=== PATIENT | female | born 1955 | race Caucasian/White ===

== ENCOUNTER 2018-11-06 17:51 | Inpatient (IN) | payer MEDICARE, OTHER ==
[~2018-11-06] VITALS: Ht 149.9 cm; Wt 53.3 kg
[2018-11-06 18:25] VITALS: BP 127/53
[2018-11-06] MEDS ORDERED: Z GUARD REMEDY 2 OZ OINT TP PRN (18:30)
[2018-11-06] MEDS ORDERED: MORPHINE SULFATE INJ 4 MG/ML DISP.SYRIN IV PRN (18:30)
[2018-11-06] MEDS: HEPARIN INFUSION/D5W 500 ML IV PRN (21:16)
[2018-11-06] MEDS ORDERED: HEPARIN SODIUM, PORCINE 5000 UNITS/1 ML VIAL IV ONE (21:30)
[2018-11-06 23:22] VITALS: BP 145/78
[2018-11-07] VITALS (9 sets, daily range): BP systolic 108–179; BP diastolic 60–94
[2018-11-07] MEDS: HYDROMORPHONE 1 MG/1 ML DISP.SYRIN IV PRN ×2 (00:08→21:21)
[2018-11-07] MEDS: ZOLPIDEM TARTRATE 5 MG TABLET PO PRN (03:34)
[2018-11-07 03:52] LABS: BASOPHILS % (AUTO) 0.2 % (0.0-2.0); EOSINOPHILS % (AUTO) 1.6 % (0.0-6.0); HEMATOCRIT 35 % (33-45); HEMOGLOBIN 11.3 g/dL (11.5-14.8); LYMPHOCYTES # (AUTO) 2.9 /CMM (0.8-4.8); LYMPHOCYTES % (AUTO) 24.4 % (20.0-44.0); MEAN CORPUSCULAR HGB CONC 32 g/dl (31.0-36.0); MEAN CORPUSCULAR VOLUME 82 fL (82-100); MONOCYTES # (AUTO) 0.9 /CMM (0.1-1.30); MONOCYTES % (AUTO) 7.7 % (2.0-12.0); NEUTROPHILS # (AUTO) 7.9 /CMM (1.8-8.9); NEUTROPHILS % (AUTO) 66.1 % (43.0-81.0); PLATELET COUNT (AUTO) 184 /CMM (150-450); RED BLOOD CELL COUNT(AUTO) 4.24 MIL/uL (4.0-5.2)
[2018-11-07 04:17] LABS: ALBUMIN 2.5 g/dL (3.4-5.0); BILIRUBIN,TOTAL 0.2 mg/dL (0.2-1.0); CALCIUM, SERUM 9.3 mg/dL (8.5-10.1); CREATININE 1.5 mg/dL (0.6-1.3); MAGNESIUM 1.3 mg/dL (1.8-2.4); POTASSIUM 3.7 mmol/L (3.5-5.1); TOTAL PROTEIN, SERUM 7.2 g/dL (6.4-8.2)
[2018-11-07 04:27] LABS: THYROID STIMULATING HORMONE 0.009 uIU/mL (0.358-3.74)
[2018-11-07] MEDS ORDERED: hydrALAZINE HCL 25 MG TABLET PO PRN (08:00)
[2018-11-07] MEDS: PANTOPRAZOLE 40 MG TABLET.DR PO SCH (08:35)
[2018-11-07] MEDS ORDERED: CARB-95 PO (08:40)
[2018-11-07] MEDS ORDERED: INSU100V7 SQ (08:40)
[2018-11-07] MEDS ORDERED: BACL20TA PO (08:40)
[2018-11-07] MEDS ORDERED: ATOR40TA PO (08:40)
[2018-11-07] MEDS ORDERED: CARB-93 PO (08:40)
[2018-11-07] MEDS ORDERED: BLOO-668 IN (08:40)
[2018-11-07] MEDS ORDERED: INSU100I14 SQ (08:40)
[2018-11-07] MEDS: Magnesium 1GM/D5W 100ML PREMIX 100 ML IV SCH ×4 (11:48→14:58)
[2018-11-07] MEDS ORDERED: DEXTROSE 50%-WATER 50 ML DISP.SYRIN IV PRN (13:00)
[2018-11-07] MEDS: BLOOD SUGAR DIAGNOSTIC 1 EACH STRIP VI SCH ×3 (13:09→21:21)
[2018-11-07] MEDS: INSULIN REGULAR, HUMAN 100 UNIT/ML 3 ML VIAL SQ PRN ×2 (13:11→17:28)
[2018-11-07] MEDS: ACETAMINOPHEN 325 MG TABLET PO PRN (14:01)
[2018-11-07] MEDS: BACLOFEN (10 MG) 10 MG TABLET PO PRN (15:25)
[2018-11-07] MEDS ORDERED: BACLOFEN (10 MG) 10 MG TABLET PO PRN (15:30)
[2018-11-07] MEDS ORDERED: RAMIPRIL 5 MG CAPSULE PO SCH (17:00)
[2018-11-07] MEDS: CARVEDILOL 12.5 MG TABLET PO SCH (21:19)
[2018-11-07] MEDS: ATORVASTATIN 40 MG TABLET PO SCH (21:19)
[2018-11-07] MEDS: *INSULIN REGULAR(HUMULIN R)HUM 100 UNIT/ML VIAL SQ PRN (21:42)
[2018-11-08] VITALS (8 sets, daily range): BP systolic 123–172; BP diastolic 61–83
[2018-11-08] MEDS: BACLOFEN (10 MG) 10 MG TABLET PO PRN ×2 (05:15→14:21)
[2018-11-08] MEDS: HEPARIN INFUSION/D5W 500 ML IV PRN (05:52)
[2018-11-08 07:19] LABS: BASOPHILS % (AUTO) 0.3 % (0.0-2.0); EOSINOPHILS % (AUTO) 3.5 % (0.0-6.0); HEMATOCRIT 29 % (33-45); HEMOGLOBIN 9.6 g/dL (11.5-14.8); LYMPHOCYTES # (AUTO) 1.8 /CMM (0.8-4.8); LYMPHOCYTES % (AUTO) 25.7 % (20.0-44.0); MEAN CORPUSCULAR HGB CONC 33 g/dl (31.0-36.0); MEAN CORPUSCULAR VOLUME 82 fL (82-100); MONOCYTES # (AUTO) 0.6 /CMM (0.1-1.30); MONOCYTES % (AUTO) 8.5 % (2.0-12.0); NEUTROPHILS # (AUTO) 4.4 /CMM (1.8-8.9); PLATELET COUNT (AUTO) 161 /CMM (150-450); RED BLOOD CELL COUNT(AUTO) 3.59 MIL/uL (4.0-5.2); WHITE BLOOD COUNT (AUTO) 7.1 K/uL (4.3-11.0)
[2018-11-08 07:41] LABS: CALCIUM, SERUM 8.7 mg/dL (8.5-10.1); CREATININE 1.6 mg/dL (0.6-1.3); POTASSIUM 3.7 mmol/L (3.5-5.1)
[2018-11-08] MEDS: BLOOD SUGAR DIAGNOSTIC 1 EACH STRIP VI SCH ×4 (08:07→21:17)
[2018-11-08] MEDS: PANTOPRAZOLE 40 MG TABLET.DR PO SCH (08:07)
[2018-11-08] MEDS: INSULIN REGULAR, HUMAN 100 UNIT/ML 3 ML VIAL SQ PRN ×3 (08:09→17:21)
[2018-11-08] MEDS: CARVEDILOL 12.5 MG TABLET PO SCH ×2 (08:39→20:24)
[2018-11-08] MEDS ORDERED: ASPIRIN EC 325 MG TABLET.DR PO SCH (09:00)
[2018-11-08] MEDS: ACETAMINOPHEN 325 MG TABLET PO PRN ×2 (09:48→21:16)
[2018-11-08] MEDS: HYDROMORPHONE 1 MG/1 ML DISP.SYRIN IV PRN ×2 (16:21→20:30)
[2018-11-08] MEDS: RAMIPRIL 5 MG CAPSULE PO SCH (18:26)
[2018-11-08] MEDS: ATORVASTATIN 40 MG TABLET PO SCH (21:16)
[2018-11-08] MEDS: ZOLPIDEM TARTRATE 5 MG TABLET PO PRN (21:17)
[2018-11-08] MEDS: *INSULIN REGULAR(HUMULIN R)HUM 100 UNIT/ML VIAL SQ PRN (21:27)
[2018-11-09] VITALS (8 sets, daily range): BP systolic 124–175; BP diastolic 53–83
[2018-11-09] MEDS: hydrALAZINE HCL 25 MG TABLET PO PRN ×2 (05:35→11:09)
[2018-11-09 06:29] LABS: BASOPHILS % (AUTO) 0.4 % (0.0-2.0); EOSINOPHILS % (AUTO) 4.8 % (0.0-6.0); HEMATOCRIT 31 % (33-45); LYMPHOCYTES # (AUTO) 1.7 /CMM (0.8-4.8); MEAN CORPUSCULAR HGB CONC 33 g/dl (31.0-36.0); MEAN CORPUSCULAR VOLUME 82 fL (82-100); MONOCYTES # (AUTO) 0.6 /CMM (0.1-1.30); MONOCYTES % (AUTO) 9.4 % (2.0-12.0); NEUTROPHILS # (AUTO) 3.9 /CMM (1.8-8.9); NEUTROPHILS % (AUTO) 59.4 % (43.0-81.0); PLATELET COUNT (AUTO) 174 /CMM (150-450); RED BLOOD CELL COUNT(AUTO) 3.71 MIL/uL (4.0-5.2); WHITE BLOOD COUNT (AUTO) 6.6 K/uL (4.3-11.0)
[2018-11-09 06:35] LABS: CALCIUM, SERUM 8.9 mg/dL (8.5-10.1); CREATININE 1.8 mg/dL (0.6-1.3); POTASSIUM 3.9 mmol/L (3.5-5.1)
[2018-11-09] MEDS: PANTOPRAZOLE 40 MG TABLET.DR PO SCH (07:44)
[2018-11-09] MEDS: BLOOD SUGAR DIAGNOSTIC 1 EACH STRIP VI SCH ×4 (07:44→21:36)
[2018-11-09] MEDS: INSULIN REGULAR, HUMAN 100 UNIT/ML 3 ML VIAL SQ PRN ×2 (07:50→17:55)
[2018-11-09] MEDS: ASPIRIN EC 81 MG TABLET.DR PO SCH (08:03)
[2018-11-09] MEDS: CARVEDILOL 12.5 MG TABLET PO SCH ×2 (08:03→21:23)
[2018-11-09] MEDS: RAMIPRIL 5 MG CAPSULE PO SCH ×2 (08:04→17:07)
[2018-11-09] MEDS: AMLODIPINE BESYLATE 5 MG TABLET PO SCH (09:08)
[2018-11-09] MEDS: BACLOFEN (10 MG) 10 MG TABLET PO PRN ×2 (09:09→22:05)
[2018-11-09] MEDS: ACETAMINOPHEN 325 MG TABLET PO PRN (09:09)
[2018-11-09] MEDS ORDERED: REGADENOSON 0.4 MG/5 ML DISP.SYRIN IVP ONE (13:00)
[2018-11-09] MEDS ORDERED: IV NS 0.9% 500 ML IV ONE (13:30)
[2018-11-09] MEDS: ONDANSETRON HCL/PF 4 MG/2 ML VIAL IVP PRN ×2 (13:40→22:01)
[2018-11-09] MEDS: CARBIDOPA/LEVODOPA 25/100 MG 1 UDTAB PO SCH (17:06)
[2018-11-09 17:33] LABS: APPEARANCE,URINE SL CLOUDY (CLEAR); BILIRUBIN,URINE NEGATIVE (NEGATIVE); BLOOD, URINE NEGATIVE Ery/uL (NEGATIVE); COLOR,URINE YELLOW (YELLOW); KETONES,URINE NEGATIVE (NEGATIVE); LEUKOCYTE ESTERASE ,URINE 1+ (NEGATIVE); NITRITE, URINE NEGATIVE (NEGATIVE); PROTEIN,URINE 2+ mg/dl (NEGATIVE); UGLUCOSE NEGATIVE (NEGATIVE); UROBILINOGEN,URINE 0.2 EU/dL (0.2)
[2018-11-09 17:40] LABS: CREATININE, URINE 50.4 MG/DL (30.0-125.0); URINE TOTAL PROTEIN 100.6 mg/dL (0-11.9)
[2018-11-09 17:46] LABS: RBC,URINE 0-2 /HPF (0-2)
[2018-11-09 17:47] LABS: BACTERIA,URINE Few /HPF (None Seen); SQUAMOUS EPITHELIAL CELL,UR Few /HPF (None Seen); WBC,URINE 25-30 /HPF (0-3)
[2018-11-09 19:04] LABS: EOSINOPHIL,URINE None Seen
[2018-11-09] MEDS: ATORVASTATIN 40 MG TABLET PO SCH (21:23)
[2018-11-09] MEDS: CARBIDOPA/LEVA CR 25/100MG 1 TAB.SA PO SCH (21:25)
[2018-11-09] MEDS: HYDROMORPHONE 1 MG/1 ML DISP.SYRIN IV PRN (21:33)
[2018-11-09] MEDS: *INSULIN REGULAR(HUMULIN R)HUM 100 UNIT/ML VIAL SQ PRN (21:47)
[2018-11-10] VITALS: BP 141/61
[2018-11-10 04:00] VITALS: BP 157/66
[2018-11-10 07:02] LABS: BASOPHILS % (AUTO) 0.4 % (0.0-2.0); EOSINOPHILS % (AUTO) 4.7 % (0.0-6.0); HEMATOCRIT 28 % (33-45); HEMOGLOBIN 9.4 g/dL (11.5-14.8); LYMPHOCYTES # (AUTO) 1.6 /CMM (0.8-4.8); LYMPHOCYTES % (AUTO) 25.7 % (20.0-44.0); MEAN CORPUSCULAR HGB CONC 34 g/dl (31.0-36.0); MEAN CORPUSCULAR VOLUME 81 fL (82-100); MONOCYTES # (AUTO) 0.4 /CMM (0.1-1.30); MONOCYTES % (AUTO) 6.3 % (2.0-12.0); NEUTROPHILS # (AUTO) 3.8 /CMM (1.8-8.9); NEUTROPHILS % (AUTO) 62.9 % (43.0-81.0); PLATELET COUNT (AUTO) 190 /CMM (150-450); RED BLOOD CELL COUNT(AUTO) 3.43 MIL/uL (4.0-5.2)
[2018-11-10 07:35] LABS: ALBUMIN 2.2 g/dL (3.4-5.0); BILIRUBIN,TOTAL 0.2 mg/dL (0.2-1.0); CALCIUM, SERUM 9.3 mg/dL (8.5-10.1); CREATININE 1.5 mg/dL (0.6-1.3); MAGNESIUM 1.7 mg/dL (1.8-2.4); PHOSPHORUS 3.8 mg/dL (2.5-4.9); POTASSIUM 4.1 mmol/L (3.5-5.1); TOTAL PROTEIN, SERUM 6.3 g/dL (6.4-8.2)
[2018-11-10] MEDS: BLOOD SUGAR DIAGNOSTIC 1 EACH STRIP VI SCH ×4 (07:36→21:34)
[2018-11-10] MEDS: PANTOPRAZOLE 40 MG TABLET.DR PO SCH (07:36)
[2018-11-10 07:57] LABS: THYROID STIMULATING HORMONE 0.078 uIU/mL (0.358-3.74)
[2018-11-10 08:00] VITALS: BP 148/77
[2018-11-10] MEDS: CARVEDILOL 12.5 MG TABLET PO SCH ×2 (09:00→21:35)
[2018-11-10] MEDS: ASPIRIN EC 81 MG TABLET.DR PO SCH (09:00)
[2018-11-10] MEDS: AMLODIPINE BESYLATE 5 MG TABLET PO SCH (09:01)
[2018-11-10] MEDS: CARBIDOPA/LEVODOPA 25/100 MG 1 UDTAB PO SCH ×2 (09:01→16:04)
[2018-11-10] MEDS: *INSULIN REGULAR(HUMULIN R)HUM 100 UNIT/ML VIAL SQ PRN ×2 (09:03→21:36)
[2018-11-10] MEDS: RAMIPRIL 5 MG CAPSULE PO SCH ×2 (09:03→16:04)
[2018-11-10] MEDS: Magnesium 1GM/D5W 100ML PREMIX 100 ML IV SCH ×2 (11:24→12:40)
[2018-11-10 12:00] VITALS: BP 160/78
[2018-11-10] MEDS: INSULIN REGULAR, HUMAN 100 UNIT/ML 3 ML VIAL SQ PRN ×3 (12:39→17:48)
[2018-11-10] MEDS: ACETAMINOPHEN 325 MG TABLET PO PRN (15:54)
[2018-11-10 16:00] VITALS: BP 191/72
[2018-11-10] MEDS: hydrALAZINE HCL 25 MG TABLET PO PRN (16:04)
[2018-11-10 20:00] VITALS: BP 155/71
[2018-11-10] MEDS: CARBIDOPA/LEVA CR 25/100MG 1 TAB.SA PO SCH (21:35)
[2018-11-10] MEDS: ATORVASTATIN 40 MG TABLET PO SCH (21:35)
[2018-11-10] MEDS: ZOLPIDEM TARTRATE 5 MG TABLET PO PRN (23:05)
[2018-11-11] VITALS: BP 122/64
[2018-11-11 04:00] VITALS: BP 134/70
[2018-11-11 07:55] LABS: CALCIUM, SERUM 9.3 mg/dL (8.5-10.1); CREATININE 1.5 mg/dL (0.6-1.3); POTASSIUM 4.4 mmol/L (3.5-5.1)
[2018-11-11] MEDS: BLOOD SUGAR DIAGNOSTIC 1 EACH STRIP VI SCH ×3 (07:55→19:20)
[2018-11-11 08:00] VITALS: BP 142/66
[2018-11-11] MEDS: INSULIN REGULAR, HUMAN 100 UNIT/ML 3 ML VIAL SQ PRN ×2 (08:55→12:31)
[2018-11-11] MEDS: RAMIPRIL 5 MG CAPSULE PO SCH ×2 (08:57→16:40)
[2018-11-11] MEDS: CARVEDILOL 12.5 MG TABLET PO SCH ×2 (08:58→20:56)
[2018-11-11] MEDS: CLOPIDOGREL BISULFATE 75 MG TABLET PO SCH ×2 (08:58→09:00)
[2018-11-11] MEDS: CARBIDOPA/LEVODOPA 25/100 MG 1 UDTAB PO SCH ×2 (08:58→16:40)
[2018-11-11] MEDS: PANTOPRAZOLE 40 MG TABLET.DR PO SCH (08:58)
[2018-11-11] MEDS: AMLODIPINE BESYLATE 5 MG TABLET PO SCH (08:59)
[2018-11-11] MEDS: ASPIRIN EC 81 MG TABLET.DR PO SCH (08:59)
[2018-11-11 12:08] LABS: PTH, INTACT 49 pg/mL (15-65)
[2018-11-11 16:00] VITALS: BP 138/72
[2018-11-11] MEDS: BACLOFEN (10 MG) 10 MG TABLET PO PRN (16:40)
[2018-11-11 20:00] VITALS: BP 135/70
[2018-11-11 20:56] VITALS: BP 135/70
[2018-11-13 09:17] LABS: *SPE A/G RATIO 0.7 (0.7-1.7); *SPE ALBUMIN 2.5 g/dL (2.9-4.4); *SPE ALPHA-1-GLOBULIN 0.3 g/dL (0.0-0.4); *SPE ALPHA-2-GLOBULIN 0.9 g/dL (0.4-1.0); *SPE BETA GLOBULIN 1.1 g/dL (0.7-1.3); *SPE GLOBULIN, TOTAL 3.4 g/dL (2.2-3.9); *SPE M-SPIKE Not Observed g/dL (Not Observed); *SPEGAMMA GLOBULIN 1.1 g/dL (0.4-1.8)
[2018-11-20 10:12] LABS: RENIN, PLASMA 0.303 ng/mL/hr (0.167-5.380)
== END 2018-11-11 22:09 | DRG 280 ==
LOC: TELE1 17:58 → MEDSG1 11-10 13:41
PROVIDERS: ADMIT Nurse Practitioner Acute Care; ATTEND Nurse Practitioner Acute Care
DX: I21.A1 Myocardial infarction type 2 (principal); N17.0 Acute kidney failure with tubular necrosis; I12.9 Hypertensive chronic kidney disease with stage 1 through stage 4 chronic kidney disease, or unspecified chronic kidney disease; N18.9 Chronic kidney disease, unspecified; E10.22 Type 1 diabetes mellitus with diabetic chronic kidney disease; D64.9 Anemia, unspecified; G20 Parkinson's disease; Z79.4 Long term (current) use of insulin; I25.10 Atherosclerotic heart disease of native coronary artery without angina pectoris; Z87.891 Personal history of nicotine dependence; F12.90 Cannabis use, unspecified, uncomplicated; E78.5 Hyperlipidemia, unspecified; E10.42 Type 1 diabetes mellitus with diabetic polyneuropathy; G90.8 Other disorders of autonomic nervous system
CPT/HCPCS: 36415; 80048-TC; 80053-TC; 80061-TC; 81000-TC; 82088; 82533; 82550-TC; 82570-TC; 82962-TC; 83540-TC; 83735-TC; 83970; 84100-TC; 84155; 84155-TC; 84165; 84244; 84300-TC; 84439-TC; 84443-TC; 84480; 84484-TC; 85025-TC; 85730-TC; 87081-TC; 87086-TC; 93307-TC; A6402; A9502; G0378; J1170; J1644; J1815; J2405; J2785; J3475; J7040